=== PATIENT | female | born 1990 | race Two or more races ===

== ENCOUNTER → 2022-11-16 | Outpatient (CLI) | payer BC ==
[2022-11-16 09:59] LABS: Basophils # (auto) 0 10 ^3/uL (0-0.2); Basophils % (auto) 0.3 % (0.0-2.0); Eosinophils # (auto) 0.1 10 ^3/uL (0-0.8); Eosinophils % (auto) 0.9 % (0.0-7.0); Hemoglobin 13.8 g/dL (12.2-16.2); Lymphocytes # (auto) 1.3 10 ^3/uL (0.4-5.4); Lymphocytes % (auto) 16.3 % (10.0-50.0); Mean Corpuscular Hemoglobin 30.9 pg (28.0-32.0); Mean Corpuscular Hgb Conc. 35.3 g/dL (32.0-36.0); Mean Corpuscular Volume 87.7 fL (80.0-100.0); Monocytes # (auto) 0.4 10 ^3/uL (0-1.3); Monocytes % (auto) 5.3 % (0.0-12.0); Neutrophils # (auto) 6.1 10 ^3/uL (1.6-8.6); Neutrophils % (auto) 77.2 % (37.0-80.0); Nucleated Red Blood Cells % 0.1 %; Red Blood Cells 4.45 10^6/uL (4.0-5.20); Red Cell Distribution Width 13.4 % (11.8-14.3); White Blood Cell 7.9 10^3/uL (4.4-10.8)
[2022-11-16 10:51] LABS: Alcohol, Urine < 3.0 mg/dL (0-10); Amphetamine Screen, Urine NEGATIVE (NEGATIVE); Barbiturate Scree,Urine NEGATIVE (NEGATIVE); Benzodiazephine Screen, Urine NEGATIVE (NEGATIVE); Cannabinoid Screen, Urine NEGATIVE (NEGATIVE); Cocaine Screen, Urine NEGATIVE (NEGATIVE); Opiate Scree,Urine NEGATIVE (NEGATIVE); Phencyclidine Screen, Urine NEGATIVE (NEGATIVE)
== END | disposition home or self-care (01) ==
LOC: LAB 09:17
PROVIDERS: ATTEND Obstetrics & Gynecology
DX: Z34.80 Encounter for supervision of other normal pregnancy, unspecified trimester (principal); Z3A.00 Weeks of gestation of pregnancy not specified
CPT/HCPCS: 36415; 80307; 83036; 84112; 85025; 86703; 86850; 86900; 86901; 87086

== ENCOUNTER 2025-01-13 07:24 | Emergency (ER) | payer BC ==
[~2025-01-13] VITALS: Ht 170.2 cm; Wt 60.9 kg
--- NOTE | 2025-01-13 07:52 | ED.PDOC ---
History of Present Illness HPI Comments 34F presents to the Er w/ prior SHx of D&C, and the c/c of vaginal bleeding. Pt reports on being 7 weeks w/ "Bad" vaginal bleeding on Tuesday, then having light bleeding from then on. Pt states that she did call her OBGYN which is Dr. Oliver to try to make an appointment but was informed to go to the Er if the bleeding continues. Social hx of Occasional alcohol use but not when she is , denies tobacco and substance use. Denies chills, fever, N/V/D, SOB, CP. No other associated symptoms, modifiers, recent injuries or sick contacts present at this time. Chief Complaint: Vaginal Bleed Time Seen by MD: 07:40 Primary Care Provider: FAWAD Reviewed Notes: Nurses Notes, Medications, Allergies Allergies: Coded Allergies: NO KNOWN ALLERGIES (Unverified , 01/13/25) Information Source: Patient Mode of Arrival: Ambulatory Severity: Moderate Timing: Days Duration: Since onset, Days Prehospital treatment: None Past Medical History PAST MEDICAL HISTORY: Denies Surgical History: Surgical History (Other): D&C OENOLOGIST History: No Pertinent OENOLOGIST History Family History Family History: Reviewed,noncontributory to illness, Unknown Social History Smoker: Non-Smoker Alcohol: Occasionally Drugs: Denies Drug Use Lives In: Home Constitutional: denies: chills, diaphoresis, fatigue, fever, malaise, sweats, weakness, others EENTM: denies: blurred vision, double vision, ear bleeding, ear discharge, ear drainage, ear pain, ear ringing, eye pain, eye redness, hearing loss, mouth pain, mouth swelling, nasal discharge, nose bleeding, nose congestion, nose pain, photophobia, tearing, throat pain, throat swelling, voice changes, others Respiratory: denies: cough, hemoptysis, orthopnea, SOB at rest, shortness of breath, SOB with excertion, stridor, wheezing, others Cardiovascular: denies: chest pain, dizzy spells, diaphoresis, Dyspnea on exertion, edema, irregular heart beat, left arm pain, lightheadedness, palpitations, PND, syncope, others Gastrointestinal: denies: abdomen distended, abdominal pain, blood streaked bowels, constipated, diarrhea, dysphagia, difficulty swallowing, hematemesis, melena, nausea, poor appetite, poor fluid intake, rectal bleeding, rectal pain, vomiting, others Genitourinary: reports: abnormal vagina bleeding, (7 weeks); denies: burning, dyspareunia, dysuria, flank pain, frequency, hematuria, incontinence, pain, vagina discharge, urgency, others Neurological: denies: dizziness, fainting, headache, left sided numbness, left sided weakness, numbness, paresthesia, pre-existing deficit, right sided numbness, right sided weakness, seizure, speech problems, tingling, tremors, weakness, others Musculoskeletal: denies: back pain, gout, joint pain, joint swelling, muscle pain, muscle stiffness, neck pain, others Integumetry: denies: bruises, change in color, change in hair/nails, dryness, laceration, lesions, lumps, rash, wounds, others Allergic/Immunocompromised: denies: Difficulty Healing, Frequent Infections, Hives, Itching, others Hematologic/Lymphatic: denies: anemia, blood clots, easy bleeding, easy bruising, swollen glands, others Endocrine: denies: excessive hunger, excessive sweating, excessive thirst, excessive urination, flushing, intolerance to cold, intolerance to heat, unexplained weight gain, unexplained weight loss, others Psychiatric: denies: anxiety, bipolar disorder, depression, hopeless, panic disorder, schizophrenia, sleepless, suicidal, others All Other Systems: Reviewed and Negative Physical Exam General Appearance: No Apparent Distress HEENT: Normal ENT Inspection, Pharynx Normal, TMs Normal Neck: Full Range of Motion, Non-Tender, Normal, Normal Inspection Respiratory: Chest Non-Tender, Lungs Clear, No Accessory Muscle Use, No Respiratory Distress, Normal Breath Sounds Cardiovascular: No Edema, No JVD, No Murmur, No Gallop, Normal Peripheral Pulses, Regular Rate/Rhythm Breast Exam: Deferred Gastrointestinal: No Organomegaly, Non Tender, No Pulsatile Mass, Normal Bowel Sounds, Soft Genitalia: Deferred Pelvic: Deferred Rectal: Deferred Extremities: No calf tenderness, Normal capillary refill, Normal inspection, Normal range of motion, Non-tender, No pedal edema Musculoskeletal : Apperance: Normal Neurologic: Alert, manager reading II-XII nml as Tested, No Motor Deficits, Normal Affect, Normal Mood, No Sensory Deficits Cerebellar Function: Normal Reflexes: Normal Skin: Dry, Normal Color, Warm Lymphatic: No Adenopathy Was a procedure done? Was a procedure done?: No Differential Dx Considerations may include: Threatened , ectopic , UTI in X-Ray, Labs, Meds, VS Vital Signs Date Time Temp Pulse Resp B/P (MAP) Pulse Ox O2 Delivery O2 Flow Rate FiO2 01/13/25 07:29 97.0 114 16 128/85 (99) 98 97.0 Lab Test 01/13/25 07:50 01/13/25 07:30 Range/Units Beta HCG, Quantitative 95908.6 H 1.5-4.2 mIU/mL Urine Color Light-yellow Yellow Urine Clarity Clear Clear Urine pH 6.5 5.0-9.0 Urine Specific [place] 1.013 1.001-1.035 Urine Protein Negative Negative Urine Ketones Negative Negative Urine Blood Trace H Negative /uL Urine Nitrite Negative Negative Urine Bilirubin Negative Negative Urine Urobilinogen Normal Negative mg/dL Urine Leukocyte Esterase Negative Negative /uL Urine RBC None seen 0 - 4 /hpf Urine Microscopic WBC 1 0-5 /HPF Urine Squamous Epithelial Cells Few <5 /hpf Urine Bacteria None seen None Seen /hpf Urine Mucus Few None Seen Urine Glucose Normal Normal mg/dL The urine test is negative for infection The pelvic ultrasound shows: IMPRESSION: 1. Single living intrauterine with estimated gestational age of 6 weeks 1 day based on 1st trimester ultrasound crown-rump length. 2. Subchorionic hemorrhage adjacent to the gestational sac measuring up to 5.2 cm in greatest dimension. [place] [address].6 The patient was being discharged and will follow up with the primary care doctor The patient will return to the emergency department's condition worsens. Images Reviewed?: Images reviewed and evaluated by me Time of 1ST Reevaluation: 08:10 Reevaluation 1ST: Unchanged Time of 2ND Reevaluation: 09:30 Reevaluation 2ND: Improved Patient Education/Counseling: Diagnosis, Treatment, Prognosis, Need For Follow Up Family Education/Counseling: No Family Present Departure 1 Departure Time of Disposition: 09:31 Impression: Primary Impression: Threatened Disposition: 01 HOME / SELF CARE / HOMELESS Condition: Fair Discharged With: Self Critical Care Note Critical Care Time?: No Stability Stability form required: No Heart Score Heart Score: Heart Score Response (Comments) Value History N/A 0 EKG N/A 0 Age N/A 0 Risk Factors N/A 0 Troponin N/A 0 Total 0 I personally scribed for KRYSTAL RUTLEDGE MD ([email or web address]) on 01/13/25 at 07:52. Electronically submitted by Sammy Bazzi ([email or web address]). KRYSTAL RUTLEDGE MD January 13, 2025 07:52
--- NOTE | 2025-01-13 09:09 | DVH ---
CLINICAL HISTORY: vag bleeding COMPARISON:None TECHNIQUE: Transabdominal grayscale sonographic imaging of the uterus and ovaries was performed, assi sted by color Doppler technique. Duplex Doppler ultrasound of both ovaries was also performed. FINDINGS: The uterus measures 9.5 x 7.7 x 5.2 cm. There is intrauterine gestational sac with yolk sac and pole visualized. [place]-rump length measures 0.71 cm, corresponding to an estimated gestati onal age of 6 weeks 4 days. heart rate measures 143 beats per minute. Suspected subchorionic he morrhage adjacent the gestational sac measuring up to 5.2 x 2.0 x 4.8 cm Right ovary measures 2.8 x 1.62.6 cm. Arterial and venous blood flow demonstrated. Left ovary measures 2.8 x 2.1 x 0.6 cm. Arterial and venous blood flow demonstrated. Mildly complex c yst in the left ovary with mild internal echoes measuring up to 1.9 cm in greatest dimension. IMPRESSION: 1. Single living intrauterine with estimated gestational age of 6 weeks 1 day based on 1st trimester ultrasound crown-rump length. 2. Subchorionic hemorrhage adjacent to the gestational sac measuring up to 5.2 cm in greatest dimensi on. 3. Additional findings as described above.
[2025-01-13 09:11] LABS: Urine Bacteria None Seen /hpf (None Seen)
[2025-01-13 09:16] LABS: Urine Blood TRACE /uL (Negative); Urine Clarity Clear (Clear); Urine Color Light-Yellow (Yellow); Urine Mucus FEW (None Seen); Urine Protein, UAD Negative (Negative); Urine Specific Gravity 1.013 (1.001-1.035); Urine Squamous Epithelial Cell FEW /hpf (<5); Urine Urobilinogen Normal (Negative); Urine WBC 1 /HPF (0-5); Urine pH 6.5 (5.0-9.0)
[2025-01-13 09:35] VITALS: BP 130/83; PULSE 77; RESP 16; TEMP 98.8; O2SAT 100
== END 2025-01-13 09:53 | disposition home or self-care (01) ==
LOC: ER 07:24
DX: O20.0 Threatened abortion (principal); Z3A.01 Less than 8 weeks gestation of pregnancy
CPT/HCPCS: 36415; 76801; 81001; 84702

== ENCOUNTER → 2025-01-22 | Outpatient (CLI) | payer BC | END | disposition home or self-care (01) | LOC: LAB 15:53 | PROVIDERS: ATTEND Obstetrics & Gynecology | DX: Z34.00 Encounter for supervision of normal first pregnancy, unspecified trimester (principal) | CPT/HCPCS: 36415; 84702; 87086; 87088; 87186 ==

== ENCOUNTER 2025-05-14 10:15 | Outpatient (CLI) | payer BC | END 2025-05-14 17:00 | disposition home or self-care (01) | LOC: LAB 10:15 | PROVIDERS: ATTEND Nurse Practitioner Women's Health | DX: Z34.80 Encounter for supervision of other normal pregnancy, unspecified trimester (principal); Z3A.00 Weeks of gestation of pregnancy not specified | CPT/HCPCS: 36415; 82670; 84144; 84702 ==

== ENCOUNTER 2025-05-16 12:57 | Outpatient (CLI) | payer BC | END 2025-05-16 17:00 | disposition home or self-care (01) | LOC: LAB 12:57 | PROVIDERS: ATTEND Nurse Practitioner Women's Health | DX: Z34.91 Encounter for supervision of normal pregnancy, unspecified, first trimester (principal); Z3A.01 Less than 8 weeks gestation of pregnancy | CPT/HCPCS: 36415; 82670; 84144; 84702 ==

== ENCOUNTER 2025-07-16 06:52 | Outpatient (CLI) | payer BC ==
[2025-07-16 08:12] LABS: Hematocrit 39.2 % (36.0-46.0); Hemoglobin 13.2 g/dL (12.2-16.2); Mean Corpuscular Hemoglobin 29.5 pg (28.0-32.0); Mean Corpuscular Volume 87.3 fL (80.0-100.0); Nucleated Red Blood Cells % 0.1 %
[2025-07-16 08:21] LABS: Thyroid Stimulating Hormone 1.3 uIU/mL (0.55-4.78)
[2025-07-16 08:24] LABS: Amphetamine Screen, Urine Neg (NEGATIVE); Barbiturate Scree,Urine Neg (NEGATIVE); Benzodiazephine Screen, Urine Neg (NEGATIVE); Cannabinoid Screen, Urine Neg (NEGATIVE); Cocaine Screen, Urine Neg (NEGATIVE); Opiate Scree,Urine Neg (NEGATIVE); Phencyclidine Screen, Urine Neg (NEGATIVE)
[2025-07-16 08:32] LABS: Beta HCG, Quantitative 13798.7 mIU/mL (1.5-4.2)
[2025-07-16 08:40] LABS: Iron 108 ug/dL (50-170)
[2025-07-16 08:43] LABS: Total Iron Binding Capacity 398 ug/dL (250-425)
[2025-07-16 08:45] LABS: Free T4 (Free Thyroxine) 1.16 ng/dL (0.89-1.76)
[2025-07-16 08:47] LABS: Ferritin 12.5 ng/mL (10-291)
[2025-07-16 18:03] LABS: RUBELLA Positive
[2025-07-18 02:07] LABS: Chlamydia Trachomatis, NAA Negative (Negative); Neisseria gonorrhoeae, NAA Negative (Negative)
== END 2025-07-16 17:00 | disposition home or self-care (01) ==
LOC: LAB 06:52
PROVIDERS: ATTEND Nurse Practitioner Women's Health
DX: O23.40 Unspecified infection of urinary tract in pregnancy, unspecified trimester (principal); N39.0 Urinary tract infection, site not specified; Z31.430 Encounter of female for testing for genetic disease carrier status for procreative management; Z11.3 Encounter for screening for infections with a predominantly sexual mode of transmission; Z36.0 Encounter for antenatal screening for chromosomal anomalies
CPT/HCPCS: 36415; 80307; 82306; 82607; 82728; 82746; 83036; 83540; 83550; 84439; 84443; 84702; 85025; 86703; 86762; 86780; 86787; 86850; 86900; 86901; 87086; 87340; 87902